=== PATIENT | female | born 1960 | race Caucasian/White ===

== ENCOUNTER 2020-07-17 11:16 | Emergency (ER) | payer OTHER ==
[~2020-07-17] VITALS: Ht 167.6 cm; Wt 65.8 kg
[2020-07-17 12:10] LABS: ABSOLUTE BASOPHILS 0.1 thou/uL (0.0-0.2); ABSOLUTE LYMPHOCYTES 2.4 thou/uL (0.8-5.3); ABSOLUTE MONOCYTES 0.6 thou/uL (0.0-1.2); ABSOLUTE NEUTROPHILS 6.1 thou/uL (1.6-8.1); BASOPHILS 0.6 %; EOSINOPHILS 0.1 %; HEMATOCRIT 43.1 % (37.0-47.0); HEMOGLOBIN 14.6 gm/dL (12.0-15.0); LYMPHOCYTES 25.9 %; MCH 31.3 pg (26.0-34.0); MCV 92.3 fL (80.0-100.0); MONOCYTES 6.4 %; MPV 8.6 fl. (7.2-11.1); NUCLEATED RBCS 0 /100WBC; PLATELET COUNT* 269 thou/uL (150-400); RBC 4.67 mil/uL (4.20-5.00); RDW-CV 13.4 % (10.5-14.5); WBC 9.2 thou/uL (4.0-11.0)
[2020-07-17 12:18] LABS: CALCIUM 9.2 mg/dL (8.5-10.1); CREATININE 0.9 mg/dL (0.6-1.3); POTASSIUM 3.8 mmol/L (3.5-5.1)
[2020-07-17 12:22] LABS: ALBUMIN 4.2 g/dL (3.4-5.0); TOTAL BILIRUBIN 0.8 mg/dL (<0.1-1.0); TOTAL PROTEIN 7.2 g/dL (6.4-8.2)
[2020-07-17] MEDS ORDERED: FLEXERIL PO (13:21)
[2020-07-17 13:28] VITALS: BP 118/68
--- NOTE | 2020-07-18 10:30 | EKG ---
[place] [address] ELECTROCARDIOGRAM REPORT Name: TONG BOB Room: [facility]#: [id number] Admission: 07/17/20 Attend Phys: Discharge: 07/17/20 Date of : 64 Date of Service: 07/17/20 1207 Report #: [id number] THIS REPORT FOR: //name// [facility] ED Test Date: 2020-07-17 Test Time: 12:07:00 Pat Name: TONG BOB Department: Room: Gender: F Electrophysiology Tech: CCD : [id number] Requested By: Ildefonso Casey Order Number: [id number] MD: Tejas Bryant Measurements Intervals [place] Rate: 56 P: 28 WY: 134 QRS: -7 QRSD: 95 T: 62 QT: 432 QTc: 417 Interpretive Statements Sinus bradycardia Low voltage, precordial leads Minimal ST elevation, inferior leads Baseline wander in lead(s) V2 No previous ECG available for comparison Electronically Signed On 07-18-2020 10:29:55 COSMETIC DENTIST by Tejas Bryant [email or web address] <ELECTRONICALLY SIGNED> By: Tejas Bryant MD, [facility] 07/18/20 1029 1207 1207 Tejas Bryant MD, [facility] /EPI
== END 2020-07-17 13:29 | disposition home or self-care (01) ==
LOC: M.ERS 11:16
PROVIDERS: Emergency Medicine Emergency Medical Services
DX: R07.89 Other chest pain (principal); Z88.5 Allergy status to narcotic agent